=== PATIENT | male | born 1980 | race Caucasian/White ===

== ENCOUNTER → 2018-01-10 | Outpatient (CLI) | payer OTHER ==
--- NOTE | 2018-01-10 20:41 | CONS ---
CONSULTATION REASON FOR CONSULTATION: Sleep apnea. This is a 37-year-old male patient who was found to have symptoms to suggest obstructive sleep apnea during a routine DOT physical. The patient was found to have an elevated BMI and he also reported some soft snoring. His blood pressure was also noted to be elevated. He had a neck size of 17. He was referred to the sleep center to undergo further investigation. 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 He has a history of bipolar disorder. He is on a combination of Seroquel and lamotrigine. While on this medication he is able to initiate and maintain sleep. He snores, however. Denies having any apneas. Denies waking up in the middle of the night gasping for air. No major hypersomnia or sleepiness during the day. He goes to bed around 8:30 p.m., wakes up at 4 a.m. in the morning. Cornwall score is currently 2. PAST MEDICAL HISTORY: Bipolar disorder. PAST SURGICAL HISTORY: Reconstruction surgery of the thumb and biceps rupture repair. DRUG ALLERGIES: NOT KNOWN. OUTPATIENT MEDICATION LIST: Seroquel and lamotrigine. SOCIAL HISTORY: He is a nonsmoker. No history of alcoholism. No history of IV drugs. FAMILY HISTORY: Positive for obstructive sleep apnea in his father. REVIEW OF SYSTEMS: Twelve-point review of systems was done. No history of insomnia. No history of nocturia. No grinding of the teeth. No sleepwalking. No dry mouth. No anxiety or panic attacks. No palpitation or chest pain. No heartburn or nausea or vomiting. No restlessness in the lower extremities. No anxiety. No depression. No claustrophobia. No report of sleep paralysis, hallucinations or cataplexy. PHYSICAL EXAMINATION: BP is 145/88, pulse 84, respirations 16, temperature 98.0, saturation 97% on room air. Weight is 254. Height is 5 feet 9 inches, BMI 36.8. Neck size 17 inches. GENERAL APPEARANCE: Calm, comfortable. No acute distress. Head is atraumatic, normocephalic. Neck is short, supple. Crowding of posterior pharynx with Mallampati class 3. LUNGS: Clear to auscultation. HEART: Heart sounds are regular rate and rhythm. Normal S1, S2. No S3, S4. No murmurs. ABDOMEN: Soft, nontender. No organomegaly. EXTREMITIES: No edema. No cyanosis or clubbing. NEUROLOGIC: Alert and oriented x3. No focal neurological deficits. PSYCHIATRIC: Negative for anxiety or depression. SKIN: Negative for any wounds or ulceration. IMPRESSION: 1. Obstructive sleep apnea suspected, currently under investigation. My overall suspicion is low, knowing that the patient does not have any major hypersomnia or sleepiness. Cornwall score is currently 2. Nevertheless, based on the anatomic features and weight and neck size and snoring history, further investigation will be obtained to rule out the possibility of obstructive sleep apnea. 2. Obesity. 3. Bipolar disorder. PLAN: 1. Weight loss. 2. Implement good sleep hygiene measures. 3. Proceed with a home sleep study. 4. Will review the home sleep study and make further recommendations in regards to his DOT certification. As mentioned, my overall suspicion is for sleep apnea is low. MMODL / IJN: [id number] /
== END | disposition home or self-care (01) ==
LOC: SLEEP 16:05
PROVIDERS: ATTEND Internal Medicine Critical Care Medicine
DX: R06.83 Snoring (principal); E66.9 Obesity, unspecified; F31.9 Bipolar disorder, unspecified; Z79.899 Other long term (current) drug therapy
CPT/HCPCS: 99211

== ENCOUNTER → 2022-07-07 | Outpatient (CLI) | payer MEDICAID ==
--- NOTE | 2022-07-07 15:27 | US ---
EXAMINATION TYPE: US thyroid st tissue head/neck DATE OF EXAM: 07/07/2022 COMPARISON: NONE CLINICAL HISTORY: E04.9 NONTOXIC GOITER, UNSPECIFIED. GLAND SIZE: Right Lobe: 4.9 x 1.4 x 1.3 cm Overall Parenchyma: homogenous Left Lobe: 4.6 x 1.4 x 1.2 cm Overall Parenchyma: homogeneous Isthmus Thickness: 0.3 cm NODULES RIGHT: # of nodules measured on right: 0 LEFT: # of nodules measured on left: 0 ISTHMUS: # of nodules measured in the isthmus: 0 Bilateral neck scanned, no evidence of lymphadenopathy. IMPRESSION: No evidence of thyroid nodule or acute process.
== END | disposition home or self-care (01) ==
LOC: RADUSWWP 14:41
PROVIDERS: ATTEND Family Medicine
DX: E04.9 Nontoxic goiter, unspecified (principal)
CPT/HCPCS: 76536

== ENCOUNTER → 2022-09-01 | Outpatient (CLI) | payer MEDICAID ==
--- NOTE | 2022-09-01 19:45 | CA ---
Transthoracic Echo Report Name: River Jonas Age: 42 Gender: M : 1980 Exam Date: 09/01/2022 11:28 Exam Location: [place] Echo Ht (in): 72 Wt (lb): 290 Ordering Physician: Chandrakant Romo DO Attending/Referring Phys: Lilly Morocho [facility] [employer] Kati Gilbert RDCS Procedure CPT: Indications: R07.89 chest pain Cardiac Hx: Technical Quality: Fair Contrast 1: N/A Total Dose (mL): Contrast 2: Total Dose (mL): MEASUREMENTS (Male / Female) Normal Values 2D ECHO LV Diastolic Diameter PLAX 4.9 cm 4.2 - 5.9 / 3.9 - 5.3 cm LV Systolic Diameter PLAX 3.5 cm IVS Diastolic Thickness 0.9 cm 0.6 - 1.0 / 0.6 - 0.9 cm LVPW Diastolic Thickness 1.5 cm 0.6 - 1.0 / 0.6 - 0.9 cm LV Relative Wall Thickness 0.5 RV Internal Dim ED PLAX 3.8 cm LA Systolic Diameter LX 4.1 cm 3.0 - 4.0 / 2.7 - 3.8 cm LA Volume 41.8 cm??? 18 - 58 / 22 - 52 cm??? M-MODE Aortic Root Diameter MM 3.0 cm LA Systolic Diameter MM 4.2 cm LA Ao Ratio MM 1.4 MV E Point Septal Separation 0.4 cm AV Cusp Separation MM 2.1 cm DOPPLER MV Area PHT 3.8 cm??? Mitral E Point Velocity 48.0 cm/s Mitral A Point Velocity 61.8 cm/s Mitral E to A Ratio 0.8 MV Deceleration Time 198.0 ms MV E' Velocity 5.7 cm/s Mitral E to MV E' Ratio 8.3 FINDINGS Left Ventricle Left ventricular ejection fraction is estimated at 60 %. Right Ventricle Normal right ventricular size and function. Right Atrium Normal right atrial size. Left Atrium Normal left atrial size. Mitral Valve Structurally normal mitral valve. Mild mitral regurgitation. Aortic Valve Trileaflet aortic valve. Aortic valve sclerosis. Tricuspid Valve Structurally normal tricuspid valve. Pulmonic Valve Pulmonic valve not well visualized. Pericardium Normal pericardium. Aorta Normal size aortic root and proximal ascending aorta. CONCLUSIONS Normal left ventricular dimension and systolic function Technically difficult study for interpretation Poorly visualized intracardiac valves Previewed by: Dr. Matt Dubose MD (Electronically Signed) Final Date: 01 September 2022 19:45
--- NOTE | 2022-09-01 19:53 | CA ---
Exercise Stress Test Report Name: River Jonas Exam Date: 09/01/2022 11:06 Exam Location: [place] Stress Ht (in): 70 Wt (lb): 290 BSA: 2.44 Ordering Phys: Chandrakant Romo DO Referring Phys: Lilly Morocho Technologist: Alphonse Molina Age: 42 Gender: M : 1980 Procedure CPT: Indications: R07.89 chest pain ICD-10 Codes: Patient History: CHEST PAIN, DIFFICULTY IN BREATHING, HTN, ELEVATED CHOLESTEROL LEVELS, FAMILY HX OF HEART DISEASE Medications: ATORVASTATIN, OMEPRAZOLE, OPTI-MEN, VENLAFAXINE HCL, ZYRTEC, LAMOTROGINE, LATUDA, LISINOPRIL, QUETIAPINE, SUDAFED, Meds past 24 hrs: Pretest Chest Pain: STRESS TEST Akil Protocol Exercise Duration (min:sec): 09:[address] Depressions (mm): Angina Score: Almanzar Score: Resting HR (bpm): 97 Peak HR (bpm): 171 Resting BP (mmHg): 144 / 85 Peak BP (mmHg): 201 / 73 MPHR: 178 Target HR: 151 % MPHR: 96 METS: 10.3 Total Dose: Peak Dose: Atropine: Double Product: [id number] BP Response: Stress Termination: TARGET HR REACHED/MAX EXERTION Stress Symptoms: CHEST PAIN "3" Stress Summary: ECG ANALYSIS Resting ECG: Stress ECG: CONCLUSIONS Excellent exercise tolerance Normal EKG in response to exercise Dr. Matt Dubose MD (Electronically Signed) Final Date: 01 September 2022 19:53
== END | disposition home or self-care (01) ==
LOC: RADNMMAIN 10:29
PROVIDERS: ATTEND Family Medicine
DX: R07.89 Other chest pain (principal)
CPT/HCPCS: 93017; 93306